=== PATIENT | female | born 1955 | race Caucasian/White ===

== ENCOUNTER 2018-11-20 09:46 | Emergency (ER) | payer BC, SELFPAY ==
[2018-11-20 09:52] VITALS: BP 118/70; PULSE 65; RESP 18; TEMP 36.5; O2SAT 95
--- NOTE | 2018-11-20 10:08 | ED.GENADUL_ITS ---
Discharge Plan Disposition Patient Disposition: HOME Condition: Stable Discharge Details Chief Complaint: Orthopedic Clinical Impression: Strain of left quadriceps Primary Care Provider: Mal[facility] ED Provider: Garrett Hayden Home Meds and New Rx's Prescriptions: New cyclobenzaprine 10 mg tablet 10 mg PO TID PRN (Reason: muscle spasm) Qty: 20 RF: 0 No Action atorvastatin 40 MG tablet 40 mg PO HS RF: 0 metoprolol succinate 50 MG tablet extended release 24 hr 50 mg PO DAILY RF: 0 aspirin [Aspirin Low-Strength] 81 MG tablet,chewable 81 mg PO DAILY RF: 0 lisinopril 2.5 MG tablet 2.5 mg PO DAILY RF: 0 travoprost (benzalkonium) 2.5 ML drops 2.5 ml Ophthalmic DAILY RF: 0 isosorbide mononitrate 30 mg Tablet Extended Release 24 Hr 30 mg PO DAILY RF: 0 clopidogrel [Plavix] 75 mg Tablet 75 mg PO DAILY RF: 0 albuterol sulfate [ProAir HFA] 90 mcg/actuation Hfa Aerosol Inhaler 2 - 4 puff Inhalation Q4H PRNRF: 0 nitroglycerin [Nitrostat] 0.4 mg Tablet, Sublingual 0.4 mg Sublingual DIRECTED RF: 0 Discharge Instructions Instructions: Muscle Strain (ED) Stand Alone Forms: Physical Therapy Referral Medical Decision Making 63 yo female states yesterday she was carrying a tv down stairs and her left leg bent backwards and stretched the quadriceps. She denies falling or hitting or head. has had posterior thigh pain since so came here. She is able to bear weight but has pain with walking. She has full rom of the hip and knee and no significant pain with palpation to the hip or knee and no swelling so doubt fx and had no fall to cause this. She does have pain with palpation to the mid posterior quadriceps and pain with flexion so suspect quadriceps strain. She has full rom of the hip or joint so doubt full tendon tear. She has taken tylenol and can't take nsaids due to being on asa and plavix, will prescribe muscle relaxers and refer to physical therapy Differential Diagnosis left thigh strain, quadriceps strain HPI General Mode of arrival: wheelchair . Date/Time Provider Initiated Documentation: 11/20/18 09:57 . Limitations to Documentation: no limitations . Information obtained by: patient . History of Present Illness 63 year old F presents to the emergency department with the chief complaint of left thigh pain, described as severe, Quality is described as aching, and is localized to the left and lower extremity. Patient reports no radiation. Patient started experiencing this day(s) (1) and it has been constant. Rest improves symptom(s), Movement worsens symptoms . Patient notes no other symptoms.. Patient did receive the following treatments prior to arrival, other (tylenol) Related Data Home Medications Medication Instructions Recorded Confirmed aspirin [Aspirin Low-Strength] 81 mg PO DAILY tab-cap 05/09/15 11/20/18 atorvastatin 40 mg PO HS tab-cap 05/09/15 11/20/18 lisinopril 2.5 mg PO DAILY tab-cap 05/09/15 11/20/18 metoprolol succinate 50 mg PO DAILY tab-cap 05/09/15 11/20/18 travoprost (benzalkonium) 2.5 ml OPHTHALMIC DAILY 06/13/15 11/20/18 albuterol sulfate [ProAir HFA] 2 - 4 puff INHALATION Q4H PRN 11/20/18 11/20/18 clopidogrel [Plavix] 75 mg PO DAILY 11/20/18 11/20/18 cyclobenzaprine 10 mg PO TID PRN #20 tab 11/20/18 isosorbide mononitrate 30 mg PO DAILY 11/20/18 11/20/18 nitroglycerin [Nitrostat] 0.4 mg SUBLINGUAL DIRECTED 11/20/18 11/20/18 Previous Rx's Medication Instructions Recorded cyclobenzaprine 10 mg PO TID PRN #20 tab 11/20/18 Allergies Allergy/AdvReac Type Severity Reaction Status Date / Time No Known Allergies Allergy Unverified 11/20/18 09:59 General Stated Complaint: Orthopedic YARITZA: 3 Review of Systems Review of Systems All systems reviewed & are unremarkable except as noted in HPI and below Constitutional Denies chills, Denies fever(s) and Denies weakness Cardiovascular Denies chest pain and Denies dyspnea Respiratory Denies cough and Denies dyspnea Gastrointestinal Denies abdominal pain, Denies nausea and Denies vomiting Integumentary/Breasts Denies rash Neurologic Denies weakness PFSH Social History Do you feel safe at home: Yes Do you feel safe in your relationship?: Yes Exam Const General: no acute distress Orientation: alert [facility] Head: normal to inspection Ears: external ears normal General nose exam: external nose normal Mouth: moist mucous membranes Eyes General: appearance normal, both eyes and all related structures Neck Neck: normal visual inspection Resp Effort & Inspection: normal respiratory effort and able to speak in complete sentences Cardio Rate: regular rate Skin General skin exam: no rashes or lesions noted Neuro General: alert and oriented x3 Extrem General: normal to inspection Psych Mental Status: mental status grossly normal Course Vital Signs Temperature 36.5 C 11/20/18 09:52 Pulse 65 11/20/18 09:52 Respiratory Rate 18 11/20/18 09:52 Blood Pressure 118/70 11/20/18 09:52 Pulse Oximetry 95 11/20/18 09:52 Temperature 36.5 C 11/20/18 09:52 Temperature Source Skin 11/20/18 09:52 Pulse 65 11/20/18 09:52 Respiratory Rate 18 11/20/18 09:52 Respiratory Effort 11/20/18 10:05 Blood Pressure 118/70 11/20/18 09:52 Blood Pressure Position Sitting 11/20/18 09:52 Pulse Oximetry 95 11/20/18 09:52 Oxygen Delivery Method Room Air 11/20/18 09:52 Oxygen Flow Rate 0 11/20/18 09:52 Pain Level 5 11/20/18 09:52
[2018-11-20] MEDS: Cyclobenzaprine 10 MG TAB PO (10:22)
== END 2018-11-20 11:54 | disposition home or self-care (01) ==
LOC: ER 10:29
PROVIDERS: Emergency Provider Emergency Medicine; PCP Neuromusculoskeletal Medicine & OMM
DX: S76.112A Strain of left quadriceps muscle, fascia and tendon, initial encounter (principal); X50.1XXA Overexertion from prolonged static or awkward postures, initial encounter
CPT/HCPCS: 99283

== ENCOUNTER 2022-04-17 08:44 | Outpatient (CLI) | payer MEDICARE, SELFPAY ==
--- NOTE | 2022-04-17 08:30 | RT.EKG_ITS ---
APPROVED REPORT Exam: Resting ECG Reason for Exam: hx of TX, CAD Patient Location: O HR:62 bpm ECG Measurements Heart Rate 62 AXIS ND 157 P 14 QRSd 97 QRS 26 QT 440 T 38 QTc 447 Conclusion Sinus rhythm...normal P axis, V-rate 50- 99 Low voltage, extremity and precordial leads...extremity<0.5mV, precordial<1.0mV Poor R wave progression
== END 2022-04-17 08:45 | disposition home or self-care (01) ==
LOC: DI.CARD 08:46
PROVIDERS: PCP Neuromusculoskeletal Medicine & OMM; Visit Provider Internal Medicine Cardiovascular Disease
DX: I25.10 Atherosclerotic heart disease of native coronary artery without angina pectoris (principal); I25.2 Old myocardial infarction; R94.31 Abnormal electrocardiogram [ECG] [EKG]
CPT/HCPCS: 93010

== ENCOUNTER → 2022-05-29 01:45 | Outpatient (CLI) | payer MEDICARE, SELFPAY ==
--- NOTE | 2022-05-29 06:45 | DI.NM_ITS ---
APPROVED REPORT Exam: Exercise Treadmill Patient Location: Out-Patient Room/Bed: Stress Nurse: Emelia Ricardo RN Ordering Provider:DEREK COLLIER, Contact Number: BMI: 45.72 Baseline Rhythm: Sinus Rhythm Indications: DYSPNEA ON EXERTION, CHEST PAIN, CORONARY ARTERY DISEASE Medical History Medical History: HLD, HTN, CAD, STEMI, Obesity Cardiac Medications: Nitro SL, Metoprolol succinate, Lisinopril, Isosorbide mononitrate, Clopidogrel, Atorvastatin, Aspirin, Albuterol sulfate Allergies: No known drug allergies Cardiac Risk Factors: HTN, Hyperlipidemia, FHX of CAD, Smoking (former), CVD, Obesity Previous Cardiac Procedures: PCI w/ stent (2011) Pretest Chest Pain Characteristics: No chest pain Exercise History: Physically active Physical Disabilities: None Lung Sounds: Clear to auscultation Heart Sounds: Regular Stress Test Details Test: , Exercise stress testing was performed using a Tesfaye protocol. Nuclear Acquisition: Rest Tc-99m/Stress Tc-99m 1 day Rest Isotope: Tc-99m Sestamibi. Dose: 12.1 Date: 05/29/2022 Injection Time: 0930 Stress Isotope: Tc-99m Sestamibi. Dose: 37.5 Date: 05/29/2022 Injection Time: 1114 HR Resting HR Supine: 64 bpm Max Heart Rate (APMHR): 155.105147 bpm Resting HR Standin bpm Target HR (85% APMHR): 131.149291 bpm Max HR Achieved: 158 bpm % of APMHR: 101.94 Recovery HR: 81 bpm HR response to stress: Normal HR response to stress Comment: Metoprolol succinate not held for test BP Resting BP Supine: 138/80 mmHg Resting BP Standin/72 mmHg Max BP: 172/78 mmHg Recovery BP: 152/78 mmHg BP response to stress: Normal blood pressure response to stress. ECG Resting ECG: Sinus Rhythm Ectopy: PVCs Stress ECG: Sinus Tachycardia ST Change: No significant ST segment changes noted Arrhythmia: multifocal PVCs, PACs Recovery ECG: Sinus Rhythm Recovery ST Change: No significant ST segment changes noted Recovery Arrhythmia: PVCs, PVC pair, PAC, about 20 seconds of NSVT 1 minute into recovery Clinical Reason for Termination: Fatigue Stress Symptoms: Dyspnea, General Fatigue Exercise duration: 5 min23 sec Highest Stage Reached: Stage 2: 2.5 mph at 12% grade. Exercise capacity: 6.52 METs Rate Pressure Product: [id number] Stress ECG Conclusion 1. Resting electrocardiogram showed poor R wave progression 2. Patient exercised on the Tesfaye protocol completed a workload of 6.52 METS 3. Normal heart rate and blood pressure response to exercise. Patient achieved greater than 100% of predicted heart rate for age 4. Electrocardiographic portion of the test showed no evidence of myocardial ischemia 5. Atrial and ventricular ectopy was noted. 6. See MPI report Stress Test Summary STAGE Time (mins) Speed (mph) Grade (%) HR BP SpO2 SYMPTOMS METS Supine 64 138/80 Standing 66 124/72 94 1 3 1.7 10 115 142/70 92 4.5 1 min recovery 152 172/78 95 3 min recovery 79 168/70 6 min recovery 81 152/78 Treadmill speed modified (slowed) in the second stage to encourage continuation of exercise after tra cer injection. MPI Conclusion Myocardial perfusion is abnormal. There is evidence of anteroseptal ischemia EF is 44%. Wall motion abnormalities are present in the anteroseptal segments Radiologist Interpretation Radiologist agrees with Skip Miner Blasting's Interpretation. Radiologist Interpretation by: Serjio Mariano MD Interpretation Date/Time: 05/29/2022 19:29:28
== END ==
PROVIDERS: PCP Neuromusculoskeletal Medicine & OMM; Visit Provider Internal Medicine Cardiovascular Disease
DX: I25.10 Atherosclerotic heart disease of native coronary artery without angina pectoris (principal)
CPT/HCPCS: 78452; 93016; 93018; 93017

== ENCOUNTER → 2022-07-10 10:19 | Outpatient (BNVA) | payer MEDICARE, SELFPAY | PROVIDERS: PCP Neuromusculoskeletal Medicine & OMM; Referring Provider Neuromusculoskeletal Medicine & OMM; Visit Provider Internal Medicine Cardiovascular Disease | DX: Z01.812 Encounter for preprocedural laboratory examination (principal); I25.10 Atherosclerotic heart disease of native coronary artery without angina pectoris; Z95.5 Presence of coronary angioplasty implant and graft | CPT/HCPCS: 99214 ==

== ENCOUNTER 2022-07-27 02:46 | Outpatient (CLI) | payer MEDICARE, SELFPAY ==
[2022-07-27 14:24] LABS: HCT 46.3 % (36.0-46.0); MCH 32.8 pg (27.0-33.0); MCHC 32.4 % (32.0-36.0); MCV 101 fL (80-95); MPV 9.5 fL (8.0-11.0); Platelet Count 282 10^3/uL (130-400); RBC 4.57 10^6/uL (3.93-5.22); RDW 13.6 % (11.7-14.6); RDW-SD 50.4 fL; WBC 9.65 10^3/uL (4.4-10.8)
[2022-07-27 14:47] LABS: PTT Activated 23.6 sec (21.0-27.5)
[2022-07-27 15:07] LABS: Prothrombin Time 9.6 sec (9.3-11.0)
[2022-07-27 15:32] LABS: Anion Gap 6.4 mmol/L (3-11); BUN 12 mg/dL (7-18); CO2 31.6 mmol/L (21.0-32.0); CREATININE 0.9 mg/dL (0.55-1.02); Calcium 9.4 mg/dL (8.5-10.1); Chloride 102 mmol/L (98-107); Estimated GFR 70.95 (mL/min/1.73m2); Glucose 104 mg/dL (74-106); Potassium 4.1 mmol/L (3.5-5.1); Sodium 140 mmol/L (136-145)
== END 2022-07-27 02:47 | disposition home or self-care (01) ==
LOC: LBO 02:46
PROVIDERS: PCP Neuromusculoskeletal Medicine & OMM; Visit Provider Internal Medicine Cardiovascular Disease
DX: I25.10 Atherosclerotic heart disease of native coronary artery without angina pectoris (principal); Z01.812 Encounter for preprocedural laboratory examination; I10 Essential (primary) hypertension; E78.5 Hyperlipidemia, unspecified; Z95.5 Presence of coronary angioplasty implant and graft; I25.2 Old myocardial infarction; Z79.82 Long term (current) use of aspirin
CPT/HCPCS: 36415; 80048; 85027; 85610; 85730

== ENCOUNTER → 2022-10-02 11:43 | Outpatient (BNVA) | payer MEDICARE, SELFPAY | PROVIDERS: PCP Neuromusculoskeletal Medicine & OMM; Referring Provider Neuromusculoskeletal Medicine & OMM; Visit Provider Internal Medicine Cardiovascular Disease | DX: R00.2 Palpitations (principal); I25.10 Atherosclerotic heart disease of native coronary artery without angina pectoris | CPT/HCPCS: 99214 ==

== ENCOUNTER 2022-10-05 09:06 | Outpatient (CLI) | payer MEDICARE, SELFPAY | END 2022-10-05 09:07 | disposition home or self-care (01) | PROVIDERS: PCP Neuromusculoskeletal Medicine & OMM; Visit Provider Internal Medicine Cardiovascular Disease | DX: I25.10 Atherosclerotic heart disease of native coronary artery without angina pectoris (principal); R00.2 Palpitations | CPT/HCPCS: 93246 ==

== ENCOUNTER 2022-10-29 10:24 | Outpatient (CLI) | payer MEDICARE, SELFPAY ==
--- NOTE | 2022-10-29 12:36 | W.CARDEVENT ---
Date of service: 10/29/22 Time of Service: 12:36 Cardiac Event Recorder Referring Provider:: Perico Mitchell Indications:: Palpitations Cardiac Event Note: This is a 14-day cardiac event monitor ordered for palpitations Rhythm throughout is sinus with an average heart rate of 71. Minimum was 49, maximum 112 There were rare atrial and ventricular ectopic beats There were several ventricular triplets There were occasional self-limited atrial runs. The longest of these was 22 beats in duration. Some of the SVT appeared to be aberrantly conducted Patient's symptoms were reported. These did not correspond to any dysrhythmia
== END 2022-10-29 10:25 | disposition home or self-care (01) ==
LOC: CARDOPNVT 10:24
PROVIDERS: PCP Neuromusculoskeletal Medicine & OMM; Visit Provider Internal Medicine Cardiovascular Disease
DX: R00.2 Palpitations (principal); I49.3 Ventricular premature depolarization; I49.1 Atrial premature depolarization
CPT/HCPCS: 93248

== ENCOUNTER → 2022-11-20 10:56 | Outpatient (BNVA) | payer MEDICARE, SELFPAY | PROVIDERS: PCP Neuromusculoskeletal Medicine & OMM; Referring Provider Neuromusculoskeletal Medicine & OMM; Visit Provider Internal Medicine Cardiovascular Disease | DX: R00.2 Palpitations (principal); I25.10 Atherosclerotic heart disease of native coronary artery without angina pectoris; Z95.5 Presence of coronary angioplasty implant and graft | CPT/HCPCS: 99213 ==

== ENCOUNTER → 2023-06-11 12:59 | Outpatient (BNVA) | payer MEDICARE, SELFPAY | PROVIDERS: PCP Neuromusculoskeletal Medicine & OMM; Referring Provider Neuromusculoskeletal Medicine & OMM; Visit Provider Internal Medicine Cardiovascular Disease | DX: Z95.5 Presence of coronary angioplasty implant and graft (principal); I25.10 Atherosclerotic heart disease of native coronary artery without angina pectoris; R00.2 Palpitations | CPT/HCPCS: 99213 ==

== ENCOUNTER 2023-12-17 10:04 | Outpatient (CLI) | payer MEDICARE, SELFPAY ==
--- NOTE | 2023-12-17 10:00 | RT.EKG_ITS ---
APPROVED REPORT Exam: Resting ECG Reason for Exam: Follow up ECG Patient Location: O HR:74 bpm ECG Measurements Heart Rate 74 AXIS WA 142 P 52 QRSd 106 QRS 12 QT 407 T 47 QTc 452 Conclusion Sinus rhythm...normal P axis, V-rate 50- 99 Anterior infarct, old...Q >40mS, abnormal ST-T, V2-V5 Baseline wander in lead(s) V3
== END 2023-12-17 10:05 | disposition home or self-care (01) ==
LOC: DI.CARD 10:08
PROVIDERS: PCP Neuromusculoskeletal Medicine & OMM; Referring Provider Neuromusculoskeletal Medicine & OMM; Visit Provider Internal Medicine Cardiovascular Disease
DX: I21.09 ST elevation (STEMI) myocardial infarction involving other coronary artery of anterior wall (principal)
CPT/HCPCS: 93010

== ENCOUNTER → 2023-12-17 10:04 | Outpatient (BNVA) | payer MEDICARE, SELFPAY | PROVIDERS: PCP Neuromusculoskeletal Medicine & OMM; Referring Provider Neuromusculoskeletal Medicine & OMM; Visit Provider Internal Medicine Cardiovascular Disease | DX: I25.2 Old myocardial infarction (principal); I25.10 Atherosclerotic heart disease of native coronary artery without angina pectoris; R00.2 Palpitations | CPT/HCPCS: 93005; 99213 ==

== ENCOUNTER → 2024-06-18 10:00 | Outpatient (BNVA) | payer MEDICARE, SELFPAY | PROVIDERS: PCP Neuromusculoskeletal Medicine & OMM; Referring Provider Neuromusculoskeletal Medicine & OMM; Visit Provider Internal Medicine Cardiovascular Disease | DX: I25.10 Atherosclerotic heart disease of native coronary artery without angina pectoris (principal) | CPT/HCPCS: 99213 ==

== ENCOUNTER → 2024-12-17 10:03 | Outpatient (BNVA) | payer MEDICARE, SELFPAY | PROVIDERS: PCP Family Medicine; Referring Provider Family Medicine; Visit Provider Internal Medicine Cardiovascular Disease | DX: I25.10 Atherosclerotic heart disease of native coronary artery without angina pectoris (principal) | CPT/HCPCS: 99213 ==

== ENCOUNTER 2025-06-10 08:24 | Outpatient (CLI) | payer MEDICARE, SELFPAY ==
--- NOTE | 2025-06-10 08:15 | RT.EKG_ITS ---
APPROVED REPORT Exam: Resting ECG Reason for Exam: CAD Patient Location: O HR:79 bpm ECG Measurements Heart Rate 79 AXIS VT 140 P 44 QRSd 96 QRS 3 QT 412 T 59 QTc 473 Conclusion Sinus rhythm...normal P axis, V-rate 50- 99 Probable left atrial enlargement...P >50mS, <-0.10mV V1 Poor R wave progression
== END 2025-06-10 08:25 | disposition home or self-care (01) ==
LOC: DI.CARD 08:24
PROVIDERS: PCP Family Medicine; Visit Provider Internal Medicine Cardiovascular Disease
DX: I25.10 Atherosclerotic heart disease of native coronary artery without angina pectoris (principal); R00.2 Palpitations; I51.7 Cardiomegaly
CPT/HCPCS: 93010

== ENCOUNTER → 2025-06-10 13:23 | Outpatient (BNVA) | payer MEDICARE, SELFPAY | PROVIDERS: PCP Family Medicine; Referring Provider Family Medicine; Visit Provider Internal Medicine Cardiovascular Disease | DX: I25.10 Atherosclerotic heart disease of native coronary artery without angina pectoris (principal); R00.2 Palpitations | CPT/HCPCS: 99213; 93005 ==